=== PATIENT | male | born 1995 | race African-American/Black ===

== ENCOUNTER 2021-12-02 11:36 | Emergency (ER) | payer SELFPAY | END 2021-12-02 12:22 | disposition home or self-care (01) | LOC: BURERS 11:36 | DX: S91.332A Puncture wound without foreign body, left foot, initial encounter (principal); W45.8XXA Other foreign body or object entering through skin, initial encounter | CPT/HCPCS: 99282 ==

== ENCOUNTER 2021-12-16 10:41 | Emergency (ER) | payer SELFPAY ==
[2021-12-16 11:21] LABS: #Eosinphils 0.1 thou/uL (0.0-0.7); #Lymphocytes 1.3 thou/uL (1.20-3.40); #Monocytes 0.5 thou/uL (0.11-0.59); #Neutrophils 5.3 thou/uL (1.40-6.50); %Basophils 0.6 % (0.0-1.0); %Lymphocytes 17.7 % (21.0-51.0); %Monocytes 6.5 % (0.0-10.0); %Neutrophils 74.3 % (42.0-75.0); Hemoglobin 15.7 g/dL (14.0-18.0); Mean Corpuscular Hemoglobin 28.7 pg (27.0-31.0); Mean Corpuscular Volume 84.5 fL (78.0-98.0); Mean Platelet Volume 5.8 fL (7.4-10.4); Platelet Count 320 thou/uL (130-400); RBC Distribution Width 12.6 % (11.5-14.5); Red Blood Cell (RBC) Count 5.49 mill/uL (4.70-6.10); White Blood Cell (WBC) Count 7.2 thou/uL (4.8-10.8)
[2021-12-16] MEDS ORDERED: Famotidine In NaCl 20 mg/50 ml Premix Bag ONE (11:24)
[2021-12-16] MEDS ORDERED: Ondansetron PF 4 MG/2 ML Vial ONE (11:24)
[2021-12-16 11:39] LABS: ALT (SGPT) 21 U/L (8-55); AST (SGOT) 14 U/L (5-34); Albumin 4.2 g/dL (3.5-5.0); Alkaline Phosphatase 54 U/L (40-110); Anion Gap 14 mmol/L (10-20); BUN (Urea Nitrogen) 9 mg/dL (8.9-20.6); Bilirubin, Total 0.6 mg/dL (0.2-1.2); Calc. Creatinine Clearance 0 mL/min (70-130); Calcium 9.1 mg/dL (7.8-10.44); Carbon Dioxide 27 mmol/L (22-29); Chloride 103 mmol/L (98-107); Globulin 2.2 g/dL (2.4-3.5); Glucose 103 mg/dL (70-105); Lipase 50 U/L (8-78); Potassium 4.1 mmol/L (3.5-5.1); Protein, Total 6.4 g/dL (6.0-8.3); Sodium 140 mmol/L (136-145)
== END 2021-12-16 12:30 | disposition home or self-care (01) ==
LOC: BURERS 10:41
DX: A08.4 Viral intestinal infection, unspecified (principal)
CPT/HCPCS: 80053; 83690; 85025; 96374; 96375; J2405